=== PATIENT | male | born 1955 | race American Indian/Alaskan Native ===

== ENCOUNTER 2017-12-24 14:05 | Outpatient (CLI) | payer OTHER ==
--- NOTE | 2017-12-24 21:43 | XRay Report ---
FINAL REPORT EXAM: XR SPINE CERVICAL 2-3V HISTORY: CERVICAL RADICULOPATHY TECHNIQUE: 3 views of the cervical spine PRIORS: None. FINDINGS: The vertebral bodies are normal in height. Vertebral alignment is normal. There is mild loss of disc height and endplate osteophyte formation at C3-4. There is moderate loss of disc height with prominent osteophyte formation at C4-5, C5-6 and C6-7. There is no evidence of fracture or subluxation. The soft tissues are unremarkable. IMPRESSION: Multilevel degenerative disc disease from C3-4 through C6-7.
== END 2017-12-24 14:06 | disposition home or self-care (01) ==
LOC: SPVIMAG 14:05
PROVIDERS: ATTEND Internal Medicine
DX: M50.323 Other cervical disc degeneration at C6-C7 level (principal); M50.31 Other cervical disc degeneration, high cervical region; M54.12 Radiculopathy, cervical region
CPT/HCPCS: 72040

== ENCOUNTER 2018-05-19 08:31 | Day surgery (SDC) | payer OTHER ==
--- NOTE | 2018-05-19 09:15 | Anesthesia Consultation ---
Anesthesia Consult and Med Hx Date of service: 05/19/18 - Airway Anesthetic Teeth Evaluation: Dentures ROM Head & Neck: Adequate Mental/Hyoid Distance: Adequate Mallampati Class: Class III Intubation Access Assessment: Possibly Difficult - Pulmonary Exam CTA: Yes - Cardiac Exam Cardiac Exam: RRR - Pre-Operative Health Status ASA Pre-Surgery Classification: ASA1 Proposed Anesthetic Plan: MAC - Gastrointestinal Hx Gastroesophageal Reflux Disease: Yes (occ, food related )
--- NOTE | 2018-05-19 09:16 | Anesthesia Day of Surgery ---
Anesthesia Day of Surgery - Day of Surgery Patient Examined: Yes Patient H&P Reviewed: Yes Patient is NPO: Yes
[2018-05-19] MEDS ORDERED: NACL 0.9% 1000 ML 1,000 ML IV SCH (10:00)
[2018-05-19] MEDS ORDERED: DIPRIVAN 10 MG/ML IV ONE ×2 (10:58)
[2018-05-19] MEDS ORDERED: WATER FOR IRRIG STERILE IR ONE ×2 (11:23→12:46)
[2018-05-19] MEDS ORDERED: XYLOCAINE TOPICAL 2% 5ML ONE (11:23)
[2018-05-19] MEDS: DILAUDID IV PRN ×2 (12:04→12:28)
--- NOTE | 2018-05-19 12:18 | Operative Report ---
Operative Report Operative Report: Date of procedure: 05/19/2018 Procedure: Colonoscopy with Hot biopsy polypectomy of transverse colon polyp. Hemorrhoidal band ligation. Attending physician: Emmanuel El MD Program Instructor: Emmanuel El MD Indication: Patient is a 63-year-old male who presents for colorectal cancer screening. He also has had anorectal discomfort with symptomatic internal hemorrhoids. This procedure is done to evaluate patient so that treatment may be directed based on the findings. Consent: Informed consent was obtained after advising the patient and family regarding nature of this procedure, its indications, potential benefits as well as possible complications including but not limited to bleeding perforation and adverse reaction to medication, infection as well as other cardiopulmonary complications. An informed written and verbal consent was then obtained after due opportunity was provided for questions and answers. Monitoring: Patient was monitored continuously with pulse oximetry and electrocardiographic recordings as well as blood pressure recordings. Vital signs remained stable throughout this procedure with no untoward events. Preoperative assessment: Patient was assessed immediately prior to this procedure for capacity to tolerate monitored anesthesia care and moderate sedation as well as general anesthesia. Patient's ASA classification is 2, Mallampati class is 2, Hyomental distance is 3. Instrument: [place] (RTP) video colonoscope. Multiband ligator Medications: Propofol given intravenously in divided doses for details please refer to anesthesia records. Description of procedure: Patient was placed in the left lateral decubitus position after achieving sedation, a digital rectal examination was performed following which the colonoscope was introduced into the anal verge and advanced to the cecum which was identified by the cecal valve, the appendiceal orifice, as well as by the cecal strap and direct transillumination. The colonoscope was subsequently withdrawn with careful inspection of all mucosal surfaces. Patient tolerated this procedure well and was subsequently taken to the recovery room. The following findings were noted. Findings: The cecum was normal. Asscending colon was normal. In the transverse , patient had a diminutive flat polyp measuring 4 mm which was removed by hot biopsy polypectomy. Descending colon was normal. Sigmoid colon was normal On the retroflex view at the anal verge patient had prominent friable large prolapsing internal hemorrhoids. An upper endoscope was preloaded with the multiband ligator reintroduced into the rectum. 5% lidocaine gel was applied in the rectum. In the retroflex view, 6 bands were applied over the hemorrhoids above the dentate line. Patient tolerated procedure well no untoward events. Impression: Transverse colon polyp status post hot biopsy polypectomy. Prominent large internal hemorrhoids status post hemorrhoidal band ligation. Plan: Follow pathology report. Daily sitz baths. High-fiber diet. Patient to apply lidocaine ointment 5% per rectum every 6 hours as needed. Anusol HC suppositories per rectum every night. Patient to use stool softeners as needed. Miralax 17 g in 8 ounce glass of water has been prescribed. Tramadol 50 mg every 6 hours as needed for pain. Patient is scheduled for further outpatient follow-up. Patients further instructed that if he developes persistent bleeding and or fevers to notify the office immediately.
--- NOTE | 2018-05-19 12:19 | Discharge Summary ---
Short Stay Discharge Plan Activity: advance as tolerated Weight Bearing Status: Weight Bear as Tolerated Diet: regular Additional Instructions: Post Sedation D/C Instructions When you return home you may resume your regular diet unless otherwise directed. -Go directly home from the hospital and rest quietly. You may resume normal activities tomorrow. -Do NOT drive, return to work, operate any machinery or make any important personal or business decisions today. -Do NOT drink any alcohol or take nerve or sleeping drugs. They add to the effects of the medicine still present in your body. Follow up with: CONSTANTINO PONCE MD [Primary Care Provider] - 7 Days
[2018-05-19] MEDS ORDERED: WATER FOR IRRIG STERILE ONE (12:46)
[2018-05-19 12:58] VITALS: BP 130/94
== END 2018-05-19 08:32 | disposition home or self-care (01) ==
LOC: GIO 08:31
PROVIDERS: ATTEND Internal Medicine Gastroenterology
DX: K63.5 Polyp of colon (principal); K64.8 Other hemorrhoids; K21.9 Gastro-esophageal reflux disease without esophagitis; Z98.890 Other specified postprocedural states; Z80.3 Family history of malignant neoplasm of breast
CPT/HCPCS: 45384; 45398; 88305; J1170; J2704; J7030

== ENCOUNTER 2018-05-20 00:39 | Emergency (ER) | payer OTHER ==
[2018-05-20 03:13] VITALS: BP 149/96
[2018-05-20] MEDS ORDERED: NACL 0.9% 1000 ML 1,000 ML IV ONE (03:14)
[2018-05-20 03:32] LABS: Basophils % (Auto) 0.1 % (0.0-1.8); Hematocrit 43.9 % (35.5-45.6); Hemoglobin 14.9 gm/dl (11.8-15.2); Lymphocytes # (Auto) 0.9 K/mm3 (1.2-5.4); Lymphocytes % (Auto) 9.2 % (13.4-35.0); Mean Corpuscular HGB Conc 34 % (32-34); Mean Corpuscular Hemoglobin 30 pg (28-32); Mean Corpuscular Volume 87 fl (84-94); Monocytes # (Auto) 0.6 K/mm3 (0.0-0.8); Monocytes % (Auto) 6.2 % (0.0-7.3); Platelet Count 182 K/mm3 (140-440); Red Blood Count 5.04 M/mm3 (3.65-5.03); Red Cell Distribution Width 14.2 % (13.2-15.2)
[2018-05-20 03:45] LABS: Alanine Aminotransferase 15 units/L (7-56); Albumin 4.6 g/dL (3.9-5); BUN/Creatinine Ratio 7; Blood Urea Nitrogen 5 mg/dL (9-20); Calcium 9.1 mg/dL (8.4-10.2); Hemolysis Index 6; Lipase 23 units/L (13-60)
== END 2018-05-20 04:41 | disposition left against medical advice (07) ==
LOC: ED 00:39
DX: R33.9 Retention of urine, unspecified (principal); Z53.21 Procedure and treatment not carried out due to patient leaving prior to being seen by health care provider
CPT/HCPCS: 36415; 80053; 83690; 85025